=== PATIENT | female | born 1990 | race Caucasian/White ===

== ENCOUNTER 2020-06-03 23:00 | Emergency (ER) | payer BC, SELFPAY ==
[2020-06-03 23:06] VITALS: BP 135/87; PULSE 114; RESP 17; TEMP 37; O2SAT 100
[2020-06-03 23:37] LABS: Basophils Absolute Auto 0.1 K/mm3 (0.0-0.1); Basophils Percent Auto 0.6 % (0.2-1.2); Eosinophils Absolute Auto 0.1 K/mm3 (0-0.3); Eosinophils Percent Auto 0.4 % (0-4.4); Hematocrit 39.9 % (37.0-47.0); Hemoglobin 13.2 g/dL (12.0-15.0); Immature Granulocyte Absolute 0.03 K/mm3 (0.00-0.031); Immature Granulocyte Percent A 0.3 % (0-0.5); Lymphocytes Absolute Auto 2.22 K/mm3 (0.9-3.2); Lymphocytes Percent Auto 19.9 % (18.3-44.2); Mean Corpuscular HGB Conc 33.1 g/dl (32-36); Mean Corpuscular Hemoglobin 28.6 pg (26-34); Mean Corpuscular Volume 86.4 fl (80-100); Mean Platelet Volume 9.6 fl (7.4-10.4); Monocytes Absolute Auto 0.6 K/mm3 (0.1-0.6); Monocytes Percent Auto 5.7 % (2.6-8.5); Neutrophils Absolute Auto 8.2 K/mm3 (1.3-6.7); Neutrophils Percent Auto 73.1 % (45.5-73.1); Platelet Count Result 414 k/mm3 (150-375); Red Blood Count 4.62 M/mm3 (4.2-5.4); Red Cell Distribution Width 13.2 % (11.5-14.5); White Blood Count 11.2 K/mm3 (4.5-10.0)
[2020-06-03 23:48] LABS: Alanine Aminotransferase 20 U/L (4-35); Albumin Level 4.7 g/dL (3.5-5.1); Alkaline Phosphatase 58 U/L (38-126); Aspartate Amino Transferase 25 U/L (14-36); Bilirubin,Total 0.4 mg/dL (0.2-1.3); Blood Urea Nitrogen 6 mg/dL (7-17); Calcium 9.2 mg/dL (8.4-10.2); Carbon Dioxide 27 mmol/L (22-30); Chloride 103 mmol/L (98-107); Estimated CRCL calculation 115 ml/min; Estimated Glomerular Filt Rate > 60; Glucose 126 mg/dL (65-105); Lipase 73 U/L (23-300); Potassium 3.5 mmol/L (3.4-5.0); Sodium 138 mmol/L (137-145)
[2020-06-04 00:07] LABS: Add Urine Microscopic? YES; Appearance Urine Clear (Clear); Bacteria Urine 1+ /hpf; Bilirubin Urine Negative (Negative); Blood Urine 2+ (Negative); Color Urine Colorless (Yellow); Glucose Urine UA Negative (Negative); Ketones Urine Negative (Negative); Leukocyte Esterase Ur Negative LEU/UL (Negative); Nitrate Urine Negative (Negative); Protein Urine Negative (Negative); RBC Urine 0-2 /hpf (0-2); Specific Grav Ur 1.005 (1.001-1.035); Urobilinogen Urine Negative mg/dL (<2.0); WBC Urine 0-3 /hpf
--- NOTE | 2020-06-04 01:09 | ED.GENADULT ---
HPI - General Adult General Chief complaint: Abdominal Pain Stated complaint: Swelling ankles and weird pains in abdomen Time Seen by Provider: 06/04/20 00:41 History of Present Illness HPI narrative: Patient is a 30-year-old female who presents to the ER with concerns of bilateral ankle swelling occurring over the last 3 to 4 days. Coincides with when she started drinking more water. She has not been eating high salt diet. Symptoms seem to be worse at the end of the day and better if she goes to bed or raises her legs. No redness or pain in the calves or lower extremities. Patient reports 10 pound weight gain. She also reports some intermittent abdominal cramping that is not associate with eating or drinking. No diarrhea. She said no fevers or chills or sweats. No aggravating or alleviating factors regarding the abdominal discomfort. Review of Systems Review of Systems: All systems reviewed & are unremarkable except as noted in HPI and below Constitutional: Constitutional: Denies chills, Denies fever(s) and Denies weakness ENT: Denies nasal congestion and Denies sore throat Cardiovascular: Cardiovascular: Denies chest pain and Denies radiating jaw, neck or arm pain Respiratory: Respiratory: Denies cough, Denies dyspnea and Denies wheezing Gastrointestinal: Gastrointestinal: Reports abdominal pain, Denies diarrhea, Denies nausea and Denies vomiting Musculoskeletal: Comments: Lower extremity edema PMFSH Past Medical History Medical History (Updated 06/04/20 @ 01:16 by Jayjay Adrian MD) Healthy female adult Surgical History Surgical History (Updated 06/04/20 @ 01:13 by Jayjay Adrian MD) H/O wisdom tooth extraction Social History Social History (Updated 06/04/20 @ 01:13 by Jayjay Adrian MD) Smoking status: Never smoker Exam Narrative: Exam Narrative: GENERAL: Well-appearing, well-nourished, and in no acute distress. HEAD: Normocephalic, atraumatic. CHEST: Clear to auscultation. No respiratory distress. HEART: Regular rate and rhythm. Normal peripheral pulses. ABDOMEN: Soft, nontender, nondistended. EXTREMITIES: Normal range of motion. Scant edema, there is indentation from her socks that still present. SKIN: Warm, dry, no rash. NEURO: Alert and oriented x3. PSYCH: Normal mood and affect. Course Course Emergency Course: Unremarkable evaluation. Follow-up with PCP. Recommend compression socks to help with edema while on her feet during the day. Vital Signs Vital signs: Vital Signs Temperature 98.6 F 06/03/20 23:06 Pulse Rate 114 H 06/03/20 23:06 Respiratory Rate 17 06/03/20 23:06 Blood Pressure 135/87 06/03/20 23:06 Pulse Oximetry 100 06/03/20 23:06 Temperature 98.6 F 06/03/20 23:06 Pulse Rate 114 H 06/03/20 23:06 Respiratory Rate 17 06/03/20 23:06 Blood Pressure 135/87 06/03/20 23:06 Pulse Oximetry 100 06/03/20 23:06 Medical Decision Making Vital Signs Vital Signs: Vital Signs Temperature 98.6 F 06/03/20 23:06 Pulse Rate 114 H 06/03/20 23:06 Respiratory Rate 17 06/03/20 23:06 Blood Pressure 135/87 06/03/20 23:06 Pulse Oximetry 100 06/03/20 23:06 Temperature 98.6 F 06/03/20 23:06 Pulse Rate 114 H 06/03/20 23:06 Respiratory Rate 17 06/03/20 23:06 Blood Pressure 135/87 06/03/20 23:06 Pulse Oximetry 100 06/03/20 23:06 Lab Data Result diagrams: 06/03/20 23:28 06/03/20 23:28 Labs: Lab Results 06/03/20 06/03/20 06/03/20 Range/Units 23:28 23:28 23:51 WBC 11.2 H (4.5-10.0) K/mm3 RBC 4.62 (4.2-5.4) M/mm3 Hgb 13.2 (12.0-15.0) g/dL Hct 39.9 (37.0-47.0) % MCV 86.4 (80-100) fl MCH 28.6 (26-34) pg MCHC 33.1 (32-36) g/dl RDW 13.2 (11.5-14.5) % Plt Count 414 H (150-375) k/mm3 MPV 9.6 (7.4-10.4) fl Immature Gran % (Auto) 0.3 (0-0.5) % Neut % (Auto) 73.1 (45.5-73.1) % Lymph % (Auto) 19.9 (18.3-44.2) % Prentiss % (Au
[2020-06-04 01:29] VITALS: BP 121/69; PULSE 81; RESP 16; TEMP 36.7; O2SAT 100
--- NOTE | 2020-06-06 02:50 | PC.NURSE ---
No straight cath needed. MD aware.
== END 2020-06-04 01:29 | disposition home or self-care (01) ==
PROVIDERS: Emergency Provider Emergency Medicine; PCP Family Medicine
DX: R60.9 Edema, unspecified (principal)
CPT/HCPCS: 36415; 80053; 81001; 81025; 83690; 85025; 99283